=== PATIENT | female | born 1955 ===

== ENCOUNTER → 2017-04-30 | Outpatient (CLI) | payer BC ==
--- NOTE | 2017-04-30 10:20 | US ---
HISTORY: Epigastric pain, vomiting Study: Abdominal ultrasound, complete Comparison: None Technique: Multiple grayscale sonographic images were obtained. Findings: The liver is normal in size and configuration and without cysts, mass, or biliary ductal dilatation. No gallstones are present within the gallbladder. Gallbladder wall thickness was normal. The common duct measured 2.7 millimeters. The spleen was normal. The right kidney measured 7.5 centimeters in length. The left kidney measured 9.2 centimeters in length. No solid masses, hydronephrosis, stones, or perinephric fluid collections were identified. The pancreas was not well visualized. The abdomin al aorta was within normal limits. IMPRESSION: No significant abnormality identified Reported By:
== END ==
LOC: RAD 09:05
PROVIDERS: ATTEND Internal Medicine Gastroenterology
DX: R10.13 Epigastric pain (principal)
CPT/HCPCS: 76700

== ENCOUNTER → 2017-05-25 | Outpatient (CLI) | payer BC ==
[~2017-05-25] MED LIST: NS 100 ML IV 100 ML IV ONE
[2017-05-25 09:02] LABS: CREATININE 0.83 mg/dL (0.55-1.02)
--- NOTE | 2017-05-25 09:59 | CT ---
CT abdomen and the pelvis with IV and oral contrast Indication: Abdominal pain with nausea and vomiting. Technique: 5 millimeter axial images of the abdomen and pelvis were performed after the administrati on of both IV and oral contrast. Coronal and sagittal reformats were provided from the original data . Findings: Images of the lower lungs are unremarkable. 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 This is secondary to bilateral L5 pars defects. The subcutaneous tissues are unremarkable. The abdominal ao rta shows no aneurysmal dilatation. Abdomen: The liver is normal except for simple appearing 2 centimeter lateral hepatic segment cyst. There is mild esophageal thickening distally. The adrenal glands and pancreas are normal in appearan ce. The gallbladder shows no abnormality. The kidneys are normal without hydronephrosis. There is a simple appearing left renal cyst. Abdomen: The urinary bladder is normal in appearance. There are subtle sigmoid diverticula. the dist al large bowel is decompressed there has been a prior hysterectomy. The small bowel its shows no dil atation. There is no free pelvic fluid or adenopathy. Conclusion: Circumferential thickening of the distal esophagus may be related to esophagitis possibl y from prior episodes of vomiting. No other abnormality seen that would explain the patient's discom fort. recent vomiting episode. Reported By:
== END | disposition home or self-care (01) | DRG 392 ==
LOC: RAD 08:33
PROVIDERS: ATTEND Internal Medicine Gastroenterology
DX: R10.84 Generalized abdominal pain (principal); R11.2 Nausea with vomiting, unspecified; N28.1 Cyst of kidney, acquired; K76.89 Other specified diseases of liver
CPT/HCPCS: 36415; 74177; 82565; 84520; A4222

== ENCOUNTER → 2017-06-05 | Outpatient (CLI) | payer BC ==
--- NOTE | 2017-06-05 13:34 | NM ---
HISTORY: Abdominal pain Study: Nuclear medicine HIDA scan with ejection fraction Comparison: None Technique: Multiple scintigraphic images of the abdomen were obtained the intravenous administration of 5.4 mCi of technetium labeled Choletec. Following distention of the gallbladder with radiotracer the patient received a fatty meal.. An est imated gallbladder ejection fraction was calculated based on the physiologic response of this infusi on. Findings: Homogeneous uptake of radiotracer is seen throughout the liver. This intrabiliary ductal system is observed normally. The common hepatic and common bile duct grossly appear unremarkable with normal biliary-bowel transit. The gallbladder is observed to fill normally. After the fatty meal a gallbladder ejection fraction of 6% (normal > 35%) is observed. IMPRESSION: 1. Normal hepatobiliary imaging scan. 2. Abnormal l gallbladder ejection fraction 6% Reported By:
== END ==
LOC: RAD 09:43
PROVIDERS: ATTEND Internal Medicine Gastroenterology
DX: R10.84 Generalized abdominal pain (principal)
CPT/HCPCS: 78227